=== PATIENT | female | born 1955 | race Caucasian/White ===

== ENCOUNTER → 2017-03-10 | Outpatient (CLI) | payer MEDICARE ==
[~2017-03-10] MED LIST: BUPIVACAINE MPF 0.25% 10 ML VIAL. ONE; LIDOCAINE 1% PF 30 ML VIAL. ONE; methylPREDNISolone ACETATE 40 MG/ML VIAL. ONE
== END | disposition home or self-care (01) ==
LOC: SURG 13:35
PROVIDERS: ATTEND Anesthesiology Pain Medicine
DX: M46.1 Sacroiliitis, not elsewhere classified (principal); M19.90 Unspecified osteoarthritis, unspecified site; J44.9 Chronic obstructive pulmonary disease, unspecified; Z87.01 Personal history of pneumonia (recurrent)
CPT/HCPCS: 27096; 99214; J1030; J2001; J3490

== ENCOUNTER → 2017-06-08 | Outpatient (CLI) | payer MEDICARE ==
[~2017-06-08] MED LIST changes: +DEXAMETHASONE SOD PHOS 4 MG/ML VIAL ONE; +IOHEXOL 300 MG/ML 50 ML VIAL. ONE; -methylPREDNISolone ACETATE 40 MG/ML VIAL. ONE
== END | disposition home or self-care (01) ==
LOC: SURG 13:09
PROVIDERS: ATTEND Anesthesiology Pain Medicine
DX: M54.12 Radiculopathy, cervical region (principal); J44.9 Chronic obstructive pulmonary disease, unspecified; Z87.01 Personal history of pneumonia (recurrent); Z72.0 Tobacco use; M19.90 Unspecified osteoarthritis, unspecified site
CPT/HCPCS: 62321; J1100; J2001; J3490; Q9967

== ENCOUNTER → 2019-03-01 | Outpatient (CLI) | payer MEDICARE ==
--- NOTE | 2019-03-01 15:40 | RAD ---
Examination: CT chest without contrast HISTORY: History of pulmonary nodule follow-up comparison: 04/22/2010 TECHNIQUE: Axial CT images of the chest were performed without contrast. Coronal and sagittal reformats are performed. Exposure: One or more of the following individualized dose reduction techniques were utilized for this examination: 1. Automated exposure control 2. Adjustment of the mA and/or kV according to patient size 3. Use of iterative reconstruction technique FINDINGS: The visualized thyroid gland grossly appears unremarkable. Central airways are patent. Few calcified mediastinal lymph nodes identified. Bilateral lung emphysematous changes. There is a 8 mm solid nodule identified in the right middle lobe of the lung. There is 6 mm nodule identified in the right lower lobe of the lung, a 4 mm nodule identified in the right lower lobe of the lung. There is a 3 mm nodule identified in the left lower lobe of the lung. 4 mm nodule in the left upper lobe of the lung. The visualized noncontrasted liver demonstrates a 2.6 cm cystic hypodensity. The abdomen is grossly appears unremarkable. Mild degenerative changes thoracic spine. IMPRESSION: 1. Multiple nodules identified in the bilateral lungs with the largest measuring 8 mm in the right middle lobe. Recommend follow-up CT in 3-6 months. 2. A 2.7 cm cystic density identified in the right lobe of the liver could be a cyst or cystic lesion. Recommend follow-up ultrasound for further evaluation. . Electronically signed by: Trevor Marcos MD (03/01/2019 3:37 PM) [id number]
== END | disposition home or self-care (01) ==
LOC: CT 09:34
PROVIDERS: ATTEND Internal Medicine Pulmonary Disease
DX: J43.9 Emphysema, unspecified (principal); R91.8 Other nonspecific abnormal finding of lung field
CPT/HCPCS: 71250

== ENCOUNTER 2020-01-03 12:22 | Inpatient (IN) | payer MEDICARE ==
[~2020-01-03] VITALS: Ht 160 cm; Wt 123.0 kg
[2020-01-03 12:10] VITALS: BP 117/80
[~2020-01-03 12:22] MED LIST changes: -BUPIVACAINE MPF 0.25% 10 ML VIAL. ONE; -DEXAMETHASONE SOD PHOS 4 MG/ML VIAL ONE; -IOHEXOL 300 MG/ML 50 ML VIAL. ONE; -LIDOCAINE 1% PF 30 ML VIAL. ONE; +VANCOMYCIN 1.75 GM in IV NORMAL SALINE 500ML 500 ML IV SCH
[2020-01-03 13:37] LABS: BASO # 0.1 x10^3/uL (0.0-0.2); BASO % 1 % (0-3); EOS # 0.1 x10^3/uL (0.0-0.7); EOS % 0 % (0-3); HEMATOCRIT 38.4 % (36.0-47.0); HEMOGLOBIN 12.6 g/dL (12.0-15.5); LYMPH % 8 % (24-48); MEAN CORPUSCULAR HEMOGLOBIN 30 pg (25-35); MEAN CORPUSCULAR HGB CONC 33 g/dL (31-37); MEAN CORPUSCULAR VOLUME 92 fL (79-100); MONO # 1.2 x10^3/uL (0.0-1.1); MONO % 10 % (0-9); NEUT # 10.3 x10^3uL (1.8-7.7); NEUT % 81 % (31-73); PLATELET COUNT 240 x10^3/uL (140-400); WHITE BLOOD COUNT 12.7 x10^3/uL (4.0-11.0)
[2020-01-03] MEDS ORDERED: DULO30CA2 PO (13:38)
[2020-01-03] MEDS ORDERED: ALBU2.5V8 IH ×2 (13:38→13:47)
[2020-01-03] MEDS ORDERED: VITA400C37 PO (13:38)
[2020-01-03] MEDS ORDERED: CALC500T54 PO (13:38)
[2020-01-03] MEDS ORDERED: MONT10TA80 PO (13:38)
[2020-01-03] MEDS ORDERED: OXYB5TAB10 PO (13:38)
[2020-01-03] MEDS ORDERED: CHOL400T36 PO (13:38)
[2020-01-03] MEDS ORDERED: BUDE10.2 IH (13:47)
[2020-01-03] MEDS ORDERED: SUMA50TA4 PO (13:47)
[2020-01-03] MEDS ORDERED: IPRA3AMP29 NEB (13:47)
[2020-01-03] MEDS ORDERED: GUAI-112 PO (13:47)
[2020-01-03 13:52] LABS: ALBUMIN 3.4 g/dL (3.4-5.0); ALBUMIN/GLOBULIN RATIO 0.9 (1.0-1.7); C REACTIVE PROTEIN 164.7 mg/L (0-3.3); CALCIUM 9.2 mg/dL (8.5-10.1); CREATININE 0.6 mg/dL (0.6-1.0); GFR 100.6; POTASSIUM 3.8 mmol/L (3.5-5.1); TOTAL BILIRUBIN 0.4 mg/dL (0.2-1.0); TOTAL PROTEIN 7.1 g/dL (6.4-8.2)
[2020-01-03] MEDS ORDERED: ALBUTEROL SULFATE 2.5 MG/3 ML NEBU. IH PRN ×2 (14:00)
[2020-01-03] MEDS ORDERED: SUMAtriptan SUCCINATE 50 MG TABLET PO PRN (14:00)
[2020-01-03] MEDS ORDERED: guaiFENesin/PS-EPHED 600/60MG 1 TAB TAB.ER.12H PO PRN (14:00)
--- NOTE | 2020-01-03 14:05 | HP ---
ADMIT DATE: 01/03/2020 HISTORY OF PRESENT ILLNESS: The patient is a 64-year-old female patient who was seen today at her primary care physician's office. She apparently was treated for left upper extremity cellulitis with Keflex and IV ceftriaxone without much improvement. The patient continued to complain of pain and swelling and erythema that is worsening and therefore, she was admitted directly for left upper extremity cellulitis. PAST MEDICAL HISTORY: Significant for chronic obstructive pulmonary disease/bronchial asthma. She has also psoriasis affecting mainly her elbows, knees and the hairline. PAST SURGICAL HISTORY: Significant for tonsillectomy, cholecystectomy, hysterectomy, neck and back surgery and right foot. FAMILY HISTORY: Both parents are . Significant for heart disease, stroke and COPD as well as cancer. SOCIAL HISTORY: She lives alone. Quit smoking about 3 months ago. She has 2 sons and 1 daughter lives nearby. ALLERGIES: SHE IS ALLERGIC TO ASPIRIN, LASIX AND ADHESIVES. MEDICATIONS: She is currently on following medications: She is on ipratropium bromide, albuterol sulfate in 3 mL by nebulizer 4 times a day, Ventolin inhaler 1 puff every 4 hours, duloxetine for Cymbalta 30 mg twice a day, sumatriptan succinate 50 mg twice a day for migraine headache, calcium carbonate 1000 mg once a day, Symbicort 160/4.5 twice a day, montelukast for Singulair 10 mg at bedtime, Mucinex D 600/60 one tablet twice a day, oxybutynin chloride 5 mg at bedtime, ergocalciferol vitamin D 5000 units once a day and vitamin E acetate 400 mg once a day. PHYSICAL EXAMINATION: GENERAL: On arrival to the hospital, she looked well and was clearly in no apparent respiratory distress. No pallor, jaundice, cyanosis or thyromegaly. No jugular venous distention or limb edema. VITAL SIGNS: Her heart rate was 98, blood pressure was 117/80, temperature was 98.5, respiratory rate was 22 and oxygen saturation was 94% on 3 liters of oxygen. HEAD, EYES, EARS, NOSE AND THROAT: Showed normocephalic, atraumatic. NECK: Supple. CARDIAC: Normal first and second heart sounds. No gallop or murmur. CHEST: Shows central trachea, equally reduced expansion, reduced air entry, vesicular sounds. I could not really appreciate any crepitation or rhonchi. ABDOMEN: Distended, soft, nontender. NEUROLOGIC: She is awake, alert, responding appropriately. All cranial nerves intact. EXTREMITIES: She moves extremities without difficulty. She ambulates with a walker and a cane. LABORATORY DATA: Her lab work on arrival showed a white cell count of 12,700, hemoglobin 12.6, hematocrit 38, MCV 92, and platelet count of 140,000 with normal manual differential. Her chemistry is still pending at the time of this dictation. IMPRESSION AND PLAN: She has also psoriasis. Other medical problems include gastroesophageal reflux disease and overactive bladder as well as osteoporosis. My plan is to start her on IV antibiotic and I also will arrange for a venous Doppler ultrasound of her left upper extremity to rule out the possibility of deep vein thrombosis. KRISS AVILA MD DR: CHELE/blade JOB#: [id number] / [id number]
[2020-01-03 14:46] LABS: % BANDS 2 % (0-9); % LYMPHS 6 % (24-48); % MONOS 6 % (0-10); % SEGS 86 % (35-66)
[2020-01-03 14:47] LABS: PLT ESTIMATE ADEQUATE (ADEQUATE)
[2020-01-03] MEDS: VANCOMYCIN PER PHARMACY MC PRN (14:49)
[2020-01-03 14:52] VITALS: BP 113/75
[2020-01-03] MEDS: HYDROcodone/APAP 5/325MG 1 TAB TABLET PO PRN ×2 (15:18→21:25)
--- NOTE | 2020-01-03 15:23 | RAD ---
EXAM: Chest, 2 views. HISTORY: Shortness of breath. COMPARISON: None CT dated 03/01/2019. FINDINGS: 2 views of the chest are obtained. There is right middle lobe, lingular and bilateral lower lobe atelectasis or interstitial infiltrate. There is no consolidation, pleural effusion or pneumothorax. There is a stable cardiac silhouette. There are calcified granulomas. There is cervical spinal fusion instrumentation. IMPRESSION: Right middle lobe, lingular and bilateral lower lobe atelectasis or interstitial infiltrate. There is no consolidated pneumonia. Electronically signed by: Jeannette Han MD (01/03/2020 3:20 PM) [id number]
[2020-01-03] MEDS: IPRATRPIUM/ALBUTEROL 0.5/2.5MG 3 ML NEBU. NEB SCH ×2 (15:31→20:36)
[2020-01-03] MEDS ORDERED: VANCOMYCIN 2 GM in IV NORMAL SALINE 500ML 500 ML IV ONE (16:00)
--- NOTE | 2020-01-03 17:00 | RAD ---
EXAM: Left upper extremity venous Doppler sonogram. HISTORY: Swelling and pain. TECHNIQUE: Snyder scale and color Doppler sonographic evaluation of the left upper extremity veins with spectral waveform analysis was performed. FINDINGS: There is normal color flow, normal compressibility and there are normal spectral waveforms in the upper extremity veins. IMPRESSION: No Doppler evidence of upper extremity venous thrombosis. Electronically signed by: Jeannette Han MD (01/03/2020 4:57 PM) [id number]
[2020-01-03 18:55] VITALS: BP 144/73
[2020-01-03] MEDS: BUDESONIDE 0.5 MG/2 ML NEBU NEB SCH (20:36)
[2020-01-03] MEDS ORDERED: NON FORMULARY ITEM (Budesonide/Formoterol Fumarate (Symbicort 160-4.5 Mcg Inhaler) 2 PUFF) IH SCH (21:00)
[2020-01-03] MEDS: DULoxetine HCL 30 MG CAPSULE.DR PO SCH (21:20)
[2020-01-03] MEDS: OXYBUTYNIN CHLORIDE 5 MG TABLET PO SCH (21:20)
[2020-01-04] MEDS: VANCOMYCIN 1.75 GM in IV NORMAL SALINE 500ML 500 ML IV SCH ×4 (02:19→22:23)
[2020-01-04] MEDS: HYDROcodone/APAP 5/325MG 1 TAB TABLET PO PRN ×3 (02:20→18:49)
[2020-01-04] MEDS: IPRATRPIUM/ALBUTEROL 0.5/2.5MG 3 ML NEBU. NEB SCH ×4 (05:24→22:22)
[2020-01-04 05:36] VITALS: BP 121/79
[2020-01-04 08:39] LABS: HEMATOCRIT 33.3 % (36.0-47.0); HEMOGLOBIN 10.9 g/dL (12.0-15.5); RED BLOOD COUNT 3.59 x10^6/uL (3.50-5.40); WHITE BLOOD COUNT 10.8 x10^3/uL (4.0-11.0)
[2020-01-04 08:53] LABS: ALBUMIN 2.8 g/dL (3.4-5.0); ALBUMIN/GLOBULIN RATIO 0.8 (1.0-1.7); CALCIUM 8.6 mg/dL (8.5-10.1); CREATININE 0.6 mg/dL (0.6-1.0); GFR 100.6; POTASSIUM 3.9 mmol/L (3.5-5.1); TOTAL BILIRUBIN 0.5 mg/dL (0.2-1.0); TOTAL PROTEIN 6.4 g/dL (6.4-8.2)
[2020-01-04] MEDS: LACTOBACILLUS RHAMNOSUS GG 1 CAPSULE. PO SCH ×2 (09:34→22:20)
[2020-01-04] MEDS: CALCIUM CARBONATE 500 MG TAB.CHEW PO SCH (09:34)
[2020-01-04] MEDS: VITAMIN E. 400 UNIT CAPSULE. PO SCH (09:34)
[2020-01-04] MEDS: DULoxetine HCL 30 MG CAPSULE.DR PO SCH ×2 (09:34→22:20)
[2020-01-04] MEDS: MONTELUKAST 10 MG TABLET. PO SCH (09:34)
[2020-01-04] MEDS: CHOLECALCIFEROL (VITAMIN D3) 1,000 UNIT TABLET PO SCH (09:35)
[2020-01-04 11:25] VITALS: BP 117/79
[2020-01-04] MEDS: BUDESONIDE 0.5 MG/2 ML NEBU NEB SCH ×2 (11:30→22:22)
[2020-01-04 15:50] VITALS: BP 137/74
[2020-01-04 16:46] LABS: VANC TR 23.2 mcg/mL (10.0-20.0)
[2020-01-04] MEDS: PIPERACILLIN/TAZOBACTAM 3.375 GM in IV NORMAL SALINE 50ML 50 ML IV SCH (17:58)
--- NOTE | 2020-01-04 19:44 | PN ---
DATE: 01/04/2020 SUBJECTIVE: The patient is resting slightly propped up in bed, in no apparent respiratory distress. She is awake, alert, continuing to complain of pain, swelling and redness of her left forearm and arm around the elbow joint area. OBJECTIVE: GENERAL: When I examined her, she looked well and was clearly in no apparent respiratory distress. She was pale. No jaundice, cyanosis or thyromegaly. No jugular venous distention, no limb edema. VITAL SIGNS: Her heart rate was 72, blood pressure was 121/79, temperature was 98.3, respiratory rate was 14 and oxygen saturation was 98% on 2 liters of oxygen. HEAD, EYES, EARS, NOSE AND THROAT: Showed normocephalic, atraumatic. NECK: Supple. HEART: Showed normal first and second heart sounds. No gallop, rub or murmur. CHEST: Clear to auscultation. No crepitation or rhonchi. ABDOMEN: Distended, soft, nontender. NEUROLOGIC: She is awake, alert, responding appropriately. She is grossly intact. Her examination of the left upper extremity compared to the right showed that her distal left arm, elbow and proximal left forearm is clearly markedly swollen, indurated, very tender to touch and erythematous. Her intake over the last 24 hours was 1180, no output was recorded. LABORATORY DATA: As of this morning, her white cell count is down to 10,800, hemoglobin 11, hematocrit 33, MCV 93 and platelet count 218,000. Her serum sodium was 139, potassium 3.9, chloride 103, bicarbonate 29, anion gap of 7, BUN 14, creatinine 0.6, estimated GFR was 100 mL per minute. Her glucose was 167, calcium was 8.6. Total bilirubin, AST, ALT, alkaline phosphatase were normal. Her total protein 6.4, albumin was 2.8. ASSESSMENT: 1. Left upper extremity cellulitis. 2. Other medical problems include: A. Chronic obstructive pulmonary disease/bronchial asthma. 3. Psoriasis. PLAN: My plan is to discontinue ceftriaxone, switch her to Zosyn 3.375 grams IV every 6 hours. We will arrange for her to have a PICC line and we will monitor her labs closely and if she has no response, I will arrange for her to have a CT scan of the left elbow and left forearm to make sure there is no fluid collection that needs to be drained. KRISS AVILA MD DR: CHELE/blade JOB#: [id number] / [id number]
[2020-01-04 21:48] VITALS: BP 168/94
[2020-01-04] MEDS: OXYBUTYNIN CHLORIDE 5 MG TABLET PO SCH (22:21)
[2020-01-04 23:43] VITALS: BP 109/75
[2020-01-05] MEDS: PIPERACILLIN/TAZOBACTAM 3.375 GM in IV NORMAL SALINE 50ML 50 ML IV SCH ×4 (01:00→17:51)
[2020-01-05] MEDS: IPRATRPIUM/ALBUTEROL 0.5/2.5MG 3 ML NEBU. NEB SCH ×4 (05:06→20:23)
[2020-01-05 06:13] VITALS: BP 134/80
[2020-01-05 07:45] LABS: ALBUMIN 2.9 g/dL (3.4-5.0); ALBUMIN/GLOBULIN RATIO 0.8 (1.0-1.7); CALCIUM 8.7 mg/dL (8.5-10.1); CREATININE 0.7 mg/dL (0.6-1.0); GFR 84.2; POTASSIUM 3.7 mmol/L (3.5-5.1); TOTAL BILIRUBIN 0.3 mg/dL (0.2-1.0); TOTAL PROTEIN 6.7 g/dL (6.4-8.2)
[2020-01-05 07:46] LABS: HEMATOCRIT 34.1 % (36.0-47.0); RED BLOOD COUNT 3.68 x10^6/uL (3.50-5.40); WHITE BLOOD COUNT 10.1 x10^3/uL (4.0-11.0)
[2020-01-05] MEDS: MONTELUKAST 10 MG TABLET. PO SCH (08:13)
[2020-01-05] MEDS: LACTOBACILLUS RHAMNOSUS GG 1 CAPSULE. PO SCH ×2 (08:13→19:32)
[2020-01-05] MEDS: DULoxetine HCL 30 MG CAPSULE.DR PO SCH ×2 (08:13→19:32)
[2020-01-05] MEDS: VITAMIN E. 400 UNIT CAPSULE. PO SCH (08:13)
[2020-01-05] MEDS: CALCIUM CARBONATE 500 MG TAB.CHEW PO SCH (08:13)
[2020-01-05] MEDS: CHOLECALCIFEROL (VITAMIN D3) 1,000 UNIT TABLET PO SCH (08:14)
[2020-01-05 09:54] LABS: VANC TR 13.1 mcg/mL (10.0-20.0)
[2020-01-05] MEDS: VANCOMYCIN 1.75 GM in IV NORMAL SALINE 500ML 500 ML IV SCH ×2 (10:04→22:55)
[2020-01-05] MEDS: VANCOMYCIN PER PHARMACY MC PRN (10:18)
[2020-01-05 10:46] VITALS: BP 158/97
[2020-01-05] MEDS ORDERED: IOHEXOL 300 MG/ML 75 ML VIAL. IV ONE (11:15)
[2020-01-05] MEDS: BUDESONIDE 0.5 MG/2 ML NEBU NEB SCH ×2 (11:25→20:23)
[2020-01-05] MEDS ORDERED: CONTRAST GIVEN. MC PRN (11:30)
[2020-01-05] MEDS: HYDROcodone/APAP 5/325MG 1 TAB TABLET PO PRN ×3 (13:33→23:56)
--- NOTE | 2020-01-05 14:06 | RAD ---
EXAM: CT left elbow with and without IV contrast DATE: 01/05/2020 10:46 AM COMPARISON: No prior INDICATION: Reason: INFECTION, CELLULITIS, R/O FLUID BUILD UP / Spl. Instructions: PT MOVED DURING CONTRAST INJECTION. HAD TO RESCAN WITHOUT / History: TECHNIQUE: CT of the left elbow was performed with and without IV contrast. Axial, coronal and sagittal reformatted images were generated. PQRS compliance statement - One or more of the following individualized dose reduction techniques were utilized for this study: 1. Automated exposure control 2. Adjustment of the mA and/or kV according to patient size 3. Use of iterative reconstruction technique FINDINGS: Postcontrast imaging incompletely included region of interest given patient motion. A peripherally enhancing fluid collection is seen overlying the olecranon, consistent with olecranon bursal distention measuring approximately 8.6 x 3.3 x 3.2 cm. Diffuse associated soft tissue thickening is seen with associated infiltration. No acute fracture. Muscle bulk is grossly normal. IMPRESSION: Olecranon bursitis, collection measures 8.6 cm, sterility of the fluid is not established by CT, and if clinically indicated this can be aspirated to evaluate for infection. Other causes of olecranon bursitis include overuse, trauma as well as inflammatory process such as RA, gout/CPPD. Electronically signed by: Huan Vo MD (01/05/2020 2:04 PM) BLAS
[2020-01-05 15:32] VITALS: BP 126/82
[2020-01-05 19:22] VITALS: BP 152/92
[2020-01-05] MEDS: OXYBUTYNIN CHLORIDE 5 MG TABLET PO SCH (19:32)
--- NOTE | 2020-01-05 20:53 | PN ---
DATE: 01/05/2020 SUBJECTIVE: The patient is sitting on the edge of the bed, eating her lunch comfortably, in no apparent distress. She continued to complain of pain in her left elbow joint swelling and redness, although the swelling and the erythema is definitely receding. We did a CT scan of her upper extremity. The results were still pending at the time of this dictation. PHYSICAL EXAMINATION: GENERAL: When I examined her, she looked pale. No jaundice, cyanosis or thyromegaly. No jugular venous distention or limb edema. VITAL SIGNS: Her heart rate was 96, blood pressure was 158/97, her temperature was 97.9, respiratory rate was 24, and oxygen saturation was 97% on 3 liters of oxygen. HEAD, EYES, EARS, NOSE AND THROAT: Normocephalic, atraumatic. NECK: Supple. HEART: Showed normal first and second heart sounds. No gallop, rub or murmur. CHEST: Clear to auscultation. No crepitation or rhonchi. ABDOMEN: Distended, soft, nontender. NEUROLOGIC: She was grossly intact. Her intake over the last 24 hours was 1118, no output was recorded. LABORATORY DATA: Her lab work this morning showed a white cell count of 10,000, hemoglobin 11, hematocrit 34, MCV 93, and platelet count 258,000. Her chemistry showed a serum sodium 140, potassium 3.7, chloride 102, bicarbonate 31, anion gap of 7, BUN 13, creatinine 0.7, estimated GFR was 84 mL per minute. Her glucose 174, calcium was 8.7. Total bilirubin, AST, ALT, alkaline phosphatase were normal. Total protein 6.7, albumin was 2.9. ASSESSMENT: 1. Left upper extremity cellulitis. 2. Other medical problems include: A. Chronic obstructive pulmonary disease/bronchial asthma. 3. Psoriasis involving elbows, knees and hair line. PLAN: To continue with IV Zosyn and vancomycin. Continue with pain management, await the result of the CT scan. If there is any fluid collection that needs to be drained. However, she will be transferred to [facility]; however, she continued to respond, will continue with IV antibiotic for now and she might be discharged home to continue treatment as an outpatient with IV antibiotic, probably in the form of IV daptomycin. KRISS AVILA MD DR: Erin JOB#: [id number] / [id number]
[2020-01-06] MEDS: PIPERACILLIN/TAZOBACTAM 3.375 GM in IV NORMAL SALINE 50ML 50 ML IV SCH ×3 (01:20→12:15)
[2020-01-06] MEDS: IPRATRPIUM/ALBUTEROL 0.5/2.5MG 3 ML NEBU. NEB SCH ×2 (05:35→08:39)
[2020-01-06 05:56] LABS: WHITE BLOOD COUNT 7.9 x10^3/uL (4.0-11.0)
[2020-01-06 05:57] LABS: HEMATOCRIT 31.4 % (36.0-47.0); HEMOGLOBIN 10.1 g/dL (12.0-15.5); RED BLOOD COUNT 3.41 x10^6/uL (3.50-5.40); RED CELL DISTRIBUTION WIDTH 14.7 % (11.5-14.5)
[2020-01-06 06:02] LABS: CALCIUM 9.1 mg/dL (8.5-10.1); CREATININE 0.7 mg/dL (0.6-1.0); GFR 84.2; POTASSIUM 4.1 mmol/L (3.5-5.1); URIC ACID 1.7 mg/dL (2.6-6.0)
[2020-01-06 06:12] VITALS: BP 125/82
[2020-01-06] MEDS: CALCIUM CARBONATE 500 MG TAB.CHEW PO SCH (08:16)
[2020-01-06] MEDS: DULoxetine HCL 30 MG CAPSULE.DR PO SCH (08:16)
[2020-01-06] MEDS: LACTOBACILLUS RHAMNOSUS GG 1 CAPSULE. PO SCH (08:16)
[2020-01-06] MEDS: VITAMIN E. 400 UNIT CAPSULE. PO SCH (08:16)
[2020-01-06] MEDS: MONTELUKAST 10 MG TABLET. PO SCH (08:16)
[2020-01-06] MEDS: CHOLECALCIFEROL (VITAMIN D3) 1,000 UNIT TABLET PO SCH (08:16)
[2020-01-06] MEDS: HYDROcodone/APAP 5/325MG 1 TAB TABLET PO PRN ×2 (08:17→14:20)
[2020-01-06] MEDS: BUDESONIDE 0.5 MG/2 ML NEBU NEB SCH (08:39)
[2020-01-06] MEDS: VANCOMYCIN 1.75 GM in IV NORMAL SALINE 500ML 500 ML IV SCH (10:01)
[2020-01-06 10:57] VITALS: BP 127/84
[2020-01-06] MEDS ORDERED: DAPT500V7 IV (13:37)
--- NOTE | 2020-01-06 13:54 | DS ---
DATE OF DISCHARGE: 01/06/2020 HOSPITAL COURSE: The patient is a 64-year-old female patient who was admitted with left upper extremity cellulitis. We did start her on IV vancomycin and Zosyn. The redness and swelling is subsiding. Her white cell count is coming down from 12,700 to 7900. She has a PICC line placed and as she remained stable, a decision was made to discharge her home with home health to finish treatment of her left upper extremity cellulitis with IV daptomycin 500 mg once a day for 7 more days. PHYSICAL EXAMINATION: GENERAL: When I examined her today, she looked well and was clearly in no apparent respiratory distress. No pallor, jaundice, cyanosis or thyromegaly. No jugular venous distention. No limb edema. VITAL SIGNS: Her heart rate was 84, blood pressure was 127/84, temperature was 97.8, respiratory rate was 18 and oxygen saturation was 95% on 4 liters of oxygen. HEAD, EYES, EARS, NOSE AND THROAT: Showed she is normocephalic, atraumatic. NECK: Supple. HEART: Showed normal first and second heart sounds. No gallop, rub or murmur. CHEST: Clear to auscultation. No crepitation or rhonchi. ABDOMEN: Distended, soft, nontender. No guarding or rigidity. No organomegaly. All hernial orifice intact. Bowel sounds normal. NEUROLOGIC: She is grossly intact. Her intake over the last 24 hours was 1800, no output was recorded. LABORATORY WORK: Showed a serum sodium 140, potassium 4.1, chloride 103, bicarbonate 33, anion gap of 4, BUN 13, creatinine was 0.7, estimated GFR was 84 mL per minute. Her glucose 152, uric acid was 1.7, calcium was 9.1. Her white cell count is down to 7900, hemoglobin 10, hematocrit 31, MCV 92, and platelet count 264,000. DISCHARGE MEDICATIONS: She was discharged home with home health to continue on albuterol sulfate 1 puff every 4 hours as needed, Symbicort 2 puffs twice a day, calcium carbonate 500 mg 2 tablets once a day, vitamin D3 [employer] Unit once a day, duloxetine for Cymbalta 30 mg twice a day, Mucinex D one tablet twice a day, ipratropium bromide, albuterol sulfate in 3 mL by nebulizer 4 times a day, Singulair 10 mg once a day, oxybutynin chloride 5 mg at bedtime, sumatriptan succinate 50 mg as needed twice a day and vitamin A 400 units once a day. FINAL DISCHARGE DIAGNOSES: 1. Left upper extremity cellulitis. 2. Left olecranon bursitis. 3. Chronic obstructive pulmonary disease/bronchial asthma. 4. Psoriasis involving elbows, knees and hairline. The patient will be treated as an outpatient with daptomycin 500 mg IV daily for 7 more days. KRISS AVILA MD DR: CHELE/blade JOB#: [id number] / [id number]
== END 2020-01-06 14:43 | disposition home health service (06) | DRG 872 ==
LOC: 1 SOUTH 12:22
PROVIDERS: ADMIT Internal Medicine; ATTEND Internal Medicine
PROC: 02HV33Z Insertion of Infusion Device into Superior Vena Cava, Percutaneous Approach (ICD-10-PCS; principal; 2020-01-04)
PROC: B548ZZA Ultrasonography of Superior Vena Cava, Guidance (ICD-10-PCS; 2020-01-04)
DX: A41.9 Sepsis, unspecified organism (principal); L03.114 Cellulitis of left upper limb; J45.909 Unspecified asthma, uncomplicated; K21.9 Gastro-esophageal reflux disease without esophagitis; L40.9 Psoriasis, unspecified; M70.22 Olecranon bursitis, left elbow; M81.0 Age-related osteoporosis without current pathological fracture; N32.81 Overactive bladder; Z82.3 Family history of stroke; Z82.5 Family history of asthma and other chronic lower respiratory diseases; Z87.891 Personal history of nicotine dependence; Z90.710 Acquired absence of both cervix and uterus; Z90.49 Acquired absence of other specified parts of digestive tract; Z60.2 Problems related to living alone; Z88.6 Allergy status to analgesic agent
CPT/HCPCS: 36415; 36569; 71046; 73202; 80048; 80053; 80202; 83605; 84550; 85007; 85025; 85027; 86140; 93971; 94640; 94760; J0696; J2543; J3370; J7040